=== PATIENT | male | born 1945 | race Caucasian/White ===

== ENCOUNTER → 2016-12-17 | Day surgery (SDC) | payer OTHER ==
[2016-12-12 12:38] VITALS: Ht 177.8 cm; Wt 73.6 kg
[~2016-12-17] VITALS: Ht 177.8 cm; Wt 73.6 kg
[~2016-12-17] MED LIST: ACETAMINOPHEN 325 MG TAB PO PRN; ASCA500 PO; ASPCH81X PO; ATOM100C PO; ATOR-24 PO; ATROPINE SULFATE 0.1 MG/ML 5ML SYR IV PRN; ATROPINE SULFATE 1% OP OINT PER APPLICATION CHARGE ONE; BUPIVACAINE HCL 0.75% 10 ML AMP/VIAL ONE; CEFAZOLIN SOD 1 GM VIAL ONE; CHOL1000 PO; DEXAMETHASONE SOD INJ 4 MG/ML VIAL ONE; DICL50TA3 PO; EpHEDrine SULFATE INJ 50 MG/ML AMP IV PRN; EpINEphrine INJ 1MG/ML AMP 1 MG/ML AMP ONE; FENTANYL CITRATE INJ 50 MCG/1 ML 2 ML VIAL ONE; FOLI1TAB7 PO; HYALURONIDASE HUMAN 150 UNIT/ML INJ ONE; LACTATED RINGER'S 1000ML 500 ML IV SCH; LIDOCAINE HCL 2% 2 ML VIAL (20MG/ML) ONE; LIDOCAINE MPF 4% INJ INJ ONE; LORA10TA44 PO; MAGN400T6 PO; MIDAZOLAM HCL 1 MG/ML 2ML VIAL ONE; NEOMYCIN/POLYMYX/DEXAMETH OP OINT PER APP CHARGE ONE; ONDANSETRON INJ 2 MG/ML 2 ML VIAL ONE; PHENYLEPHRINE HCL 10% OP SOLN PER DROP CHARGE ONE; PROPARACAINE 0.5% OP SOLN PER DROP CHARGE OPR SCH; PROPOFOL IV EMULSION 10 MG/ML 20 ML VIAL IV ONE; TIMOLOL MALEATE 0.5% OP SOLN PER DROP CHARGE ONE
[2016-12-17] MEDS: PHENYLEPHRINE HCL 2.5% OP SOLN PER DROP CHARGE OPR SCH ×2 (08:14→08:19)
[2016-12-17] MEDS: TROPICAMIDE 1% OP SOLN PER DROP CHARGE OPR SCH ×2 (08:15→08:20)
--- NOTE | 2016-12-17 09:51 | History & Physical Bridge - SC ---
H&P Re-Evaluation Bridge Note: pt has retinal detachmen in right eye and is having vitrectomy right eye. I have examined the patient, reviewed the History & Physical and in the interval since the performance of the History & Physical I have noted the following changes of clinical significance: No changes noted
--- NOTE | 2016-12-17 11:22 | [facility] Operative Report ---
Operative Report PREOPERATIVE DIAGNOSIS: Retinal detachment, macula-off right eye. ICD 10: H33.011 POSTOPERATIVE DIAGNOSIS: same. PROCEDURE: 1. Pars plana vitrectomy, 23 gauge. 2. Fluid-air exchange. 3. Endolaser. 4 Air-gas exchange with SF6 20%. All to the right eye. CPT CODE: 81821 SURGEON: Jose Ogden D.O. COMPLICATIONS: None. ESTIMATED BLOOD LOSS: None. SPECIMENS: None. ANESTHESIA: Retrobulbar block and MAC. INDICATIONS FOR PROCEDURE: Surgery is indicated to decrease risk of vision loss and potentially improve vision. CONSENT: The risks, benefits and alternatives were discussed with the patient including but not limited to decreased visual acuity, failure to achieve desired results, loss of the eye, infection, pain, glaucoma, lens changes, retinal tears, retinal detachment, the need for more procedures, drooping of the eyelid, blindness, and double vision. The patient is aware of risks and consents to the surgery. Consent is signed and on the chart. OPERATION AND FINDINGS: The patient was brought to the operating room where the patient was identified by name, date, and medical record number. The surgical site was confirmed with the informed written consent. The patient was sedated by the anesthesiology team after which a 50:50 mixture of 4% lidocaine and 0.75% bupivacaine with hyaluronidase was administered in a standard retrobulbar fashion. A total of 4 ml was administered without difficulty. The patient was then prepped and draped in the usual sterile manner for retinal surgery. A wire lid speculum was placed and an Max 23-gauge trocar cannula system was employed. The inferior temporal trocar cannula was first placed in an angled fashion 3.75mm posterior to the surgical limbus and the infusion cannula was inserted into this cannula after which the intravitreal position was verified prior to turning the infusion on. Two more trocar cannulas were then inserted in an angled fashion, one in the superior temporal, and one in the superior nasal quadrant both 3.75mm posterior to the surgical limbus. A light pipe and vitrector were then introduced into the eye and the BIOM wide angle viewing system was brought into place. Posterior inspection revealed a retinal detachment from 4-11:30 o'clock with the inciting retinal break at 11 o'clock. Standard core vitrectomy was performed and the vitreous was insured to be totally detached from the posterior pole with the aid of the vitrector. The vitreous base was shaved for 360 degrees. At this point scleral depression was performed for 360 degrees and no other retinal tears were noted. Fluid air exchange was performed and the subretinal fluid was drained through a small retinotomy site that was fashioned along the superior arcades. Endolaser was then used to place laser around the inciting retinal break and the drainage retinotomy. Next, an air gas exchange was performed with SF620% for a complete fill of the eye. The trocar cannulas were then removed and found to be air tight. The intraocular pressure was found to be within normal limits by palpation and subconjunctival injections of Kefzol and dexamethasone were administered inferiorly and superiorly. The wire lid speculum was removed. Maxitrol, atropine and timolol were applied to the surface of the eye. A light patch and shield were taped over the surface of the eye and the patient left the Operating Room in stable condition having tolerated the procedure well. DISPOSITION: A gas bracelet was placed on the patient's wrist and gas precautions reviewed as well as the positioning instructions. The patient has an appointment the following morning in the Ophthalmology Clinic. The patient is to call immediately if there are any problems overnight. I attest to the content of the Intraoperative Record and any orders documented therein. Any exceptions are noted below.
--- NOTE | 2016-12-17 11:23 | Discharge Instructions-SurgCtr ---
Discharge Instructions Visit Reason for Visit: Right Eye Retinal Detachment Discharge Discharge Diagnosis / Problem: same Discharge Goals Goal(s): Improve function Activity Recommendations Activity Limitations: per Instructions/Follow-up section Anesthesia . Post Anesthesia Instructions: If you have had General Anesthesia or IV Sedation: * Do not drive today. * Resume driving when surgeon permits. * Do not make important decisions or sign legal documents today. * Call surgeon for: 1. Temperature elevations greater than 101 degrees F. 2. Uncontrollable pain. 3. Excessive bleeding. 4. Persistent nausea and vomiting. 5. Medication intolerance (nausea, vomiting or rash). * For nausea and vomiting use only clear liquids such as: tea, soda, bouillon until nausea subsides, then gradually increase diet as tolerated. * If you have any concerns or questions, call your surgeon's office. If physician is unavailable and it is an emergency, call 911 or go to the nearest emergency room. . Instructions / Follow-Up Instructions / Follow-Up * May take Tylenol if needed for discomfort. * Do NOT lay flat on back and position head as follows: face forward or chin down during daytime, sleep on left side * Do NOT remove green bracelet until instructed to do so by your surgeon and follow these precautions: * No air travel * No travel above 2500 feet * No nitrous oxide (N2O). * Do NOT remove eye shield. * NO straining, heavy lifting (>15 pounds) or bending below waist. * Avoid getting water or soap directly into operative eye. * Do NOT rub eye. If you experience increasing eye pain not relieved by medication, please contact us immediately at [phone]. If you are unable to reach someone at the above number, call [phone] and ask to speak with the EYE DOCTOR RENTAL SALES ASSOCIATE. Inform them that you are a Dr. Ogden patient who had recent surgery. Diet Recommendations Home Diet: resume previous diet Procedures Procedures Performed: Right Eye 23 Gauge Vitrectomy, Endo Laser, SF6 Gas Insertion Pending Studies Studies pending at discharge: no Medical Emergencies . Who to Call and When: Medical Emergencies: If at any time you feel your situation is an emergency, please call 911 immediately. . Non-Emergent Contact Non-Emergency issues call your: Supervisor Looping . . "Provider Documentation" section prepared by Jose Ogden.
[2016-12-17 11:36] VITALS: TEMP 36.4
--- NOTE | 2016-12-17 11:38 | Anesthesia Progress Nt - [facility] ---
Anesthesia Post Op Note Date & Time Dec 17, 2016 at 11:37 Vital Signs Pain Intensity: 0 Vital Signs Past 12 Hours Date Time Temp Pulse Resp B/P Pulse Ox O2 Delivery O2 Flow Rate FiO2 12/17/16 08:08 36.8 61 16 123/76 98 Room Air Notes Mental Status: alert / awake / arousable, participated in evaluation Pt Amnestic to Procedure: Yes Nausea / Vomiting: adequately controlled Pain: adequately controlled Airway Patency, RR, SpO2: stable & adequate BP & HR: stable & adequate Hydration State: stable & adequate Anesthetic Complications: no major complications apparent
[2016-12-17 12:45] VITALS: BP 127/70; PULSE 46; O2SAT 100
== END | disposition home or self-care (01) ==
LOC: X.SURG 07:51
PROVIDERS: ATTEND Ophthalmology
DX: H33.011 Retinal detachment with single break, right eye (principal)

== ENCOUNTER → 2017-11-08 | Outpatient (CLI) | payer OTHER ==
[~2017-11-08] VITALS: Ht 177.8 cm; Wt 81.3 kg
[~2017-11-08] MED LIST changes: -ACETAMINOPHEN 325 MG TAB PO PRN; -ATROPINE SULFATE 0.1 MG/ML 5ML SYR IV PRN; -ATROPINE SULFATE 1% OP OINT PER APPLICATION CHARGE ONE; -BUPIVACAINE HCL 0.75% 10 ML AMP/VIAL ONE; -CEFAZOLIN SOD 1 GM VIAL ONE; -DEXAMETHASONE SOD INJ 4 MG/ML VIAL ONE; -EpHEDrine SULFATE INJ 50 MG/ML AMP IV PRN; -EpINEphrine INJ 1MG/ML AMP 1 MG/ML AMP ONE; -FENTANYL CITRATE INJ 50 MCG/1 ML 2 ML VIAL ONE; -FOLI1TAB7 PO; +FOLI1TAB8 PO; -HYALURONIDASE HUMAN 150 UNIT/ML INJ ONE; -LACTATED RINGER'S 1000ML 500 ML IV SCH; -LIDOCAINE HCL 2% 2 ML VIAL (20MG/ML) ONE; -LIDOCAINE MPF 4% INJ INJ ONE; -MIDAZOLAM HCL 1 MG/ML 2ML VIAL ONE; -NEOMYCIN/POLYMYX/DEXAMETH OP OINT PER APP CHARGE ONE; -ONDANSETRON INJ 2 MG/ML 2 ML VIAL ONE; -PHENYLEPHRINE HCL 10% OP SOLN PER DROP CHARGE ONE; -PROPARACAINE 0.5% OP SOLN PER DROP CHARGE OPR SCH; -PROPOFOL IV EMULSION 10 MG/ML 20 ML VIAL IV ONE; -TIMOLOL MALEATE 0.5% OP SOLN PER DROP CHARGE ONE
[2017-11-08 14:45] VITALS: BP 129/77; PULSE 69; Ht 177.8 cm; Wt 81.3 kg
== END | disposition home or self-care (01) ==
LOC: C.NEUR 14:20
PROVIDERS: ATTEND Internal Medicine Pulmonary Disease
DX: G47.33 Obstructive sleep apnea (adult) (pediatric) (principal); F90.9 Attention-deficit hyperactivity disorder, unspecified type; R53.83 Other fatigue

== ENCOUNTER → 2017-11-12 | Outpatient (CLI) | payer OTHER ==
--- NOTE | 2017-11-13 06:03 | PAP/PSG TECHNICIAN REPORT ---
[facility] Desktop Architect Polysomnogram Report Study name: None Report date: 11/13/2017 Study date: 11/12/2017 Referring Physician: DR. DELACRUZ Name: MONTY POON Interpreting Physician: Monty Delacruz M.D. Date of : 1945 Desktop Architect: Marvel Plaza RPSGT. Sex: Male Age: 72 StudyType: PSG Weight: 179 lbs 15 inches Height: 72 years, Height 5' 9" Neck Circum: BMI: 26.43 Medications: ASPIRIN 81 MG, ATORVASTATIN CALCIUM 20 MG, CETIRIZINE HCL 10 MG, CONCERTA 18 MG, DICLOFENAC SODIUM ER 100 MG, METROGEL, MIRTAZAPINE 30 MG, VALTREX Patient History PATIENT WAS DIAGNOSED WITH JANIS MANY YEARS AGO AND USED CPAP FOR A SHORT AMOUNT OF TIME. 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 HE HAS TRIED DENTAL DEVICES IN THE PAST WITH DIFFICULTY TOLERATING THEM. HE IS HERE TODAY FOR AN EVALUATION FOR JANIS. ESS = 4 RM 7 Parameters Monitored NPSG: E1-M2, E2-M1, Fp1-M2, Fp2-M1, F3-M2, F4-M2, F4-M1, C3-M2, C4-M2, C4-M1, O1-M2, O2-M2, O2-M1, T3-M2, T4-M1, P3-M2, P4-M1, CHIN1, CHIN2, HR, EKG, Legs, PFLOW, SNOR, FLOW, CFLOW, Tidal Volume, THOR, ABDO, SpO2, PLTH, CPRESS, ETCO2 Wave, ETCO2, pH Sleep Architecture Sleep Stages Time at Lights Off 10:09:21 PM STAGES Time (min.) TST (%) Time at Lights On 5:32:51 AM Wake 40.5 -- Total Recording Time (TRT) 444.00 min. N1 25.5 6 Total Sleep Period (TSP) 435.0 min. N2 268.0 67 Total Sleep Time (TST) 403.0min. N3 35.5 9 Awake Time 41.0 min. REM 74.0 18 Wake after Sleep Onset 32.0 min. Sleep Efficiency (SE) 91 % Sleep Onset Latency (TIGIST) 8.5 min. Number of Stage 1 Shifts None Awakenings 17 Stage Changes 82 Number of REM periods 4 REM 74.0 18 REM Latency 232.0 min. NREM 329.0 82 Body Position Analysis Supine Right Left Side Prone Vertical Total Sleep Time (min.) 0.0 403.0 0.0 403.00 0.0 0.0 Total Sleep Time (%) 0% 100% 0% 100 0% N/A% Total Sleep Time REM (min.) 0.0 74.0 0.0 None 0.0 0.0 Total Sleep Time NREM (min.) 0.0 329.0 0.0 None 0.0 0.0 Intermittent Wake (min.) 0.0 40.5 0.0 None 0.0 0.0 Total Sleep Period (%) 0% None None None None None Arousals Myoclonus (PLM) * Events Count Index Events Count Index Spontaneous 42 6 Events Awake (PLMW) 48 71.1 Respiratory 0 0.0 Events Asleep w/ Arousal (PLMA) 7 1.0 PLM 7 1 Events Asleep w/o Arousal (PLMS) 41 6.1 Snoring 4 1 Total Asleep 48 7.1 Total 53 8 Total 96 13 Respiratory Analysis * CA OA MA CH H RERA Total Count 0 0 0 0 4 0 4 Index 0.0 0.0 0.0 0 0.6 0 0.6 Mean Duration 0.0 0.0 0.0 0.00 17.1 0.0 17.1 Longest Duration 0.0 0.0 0.0 0.00 0.0 0.0 21.4 Respiratory Event Summary Total Supine ~Supine Right Left Prone REM NREM Apneas Count 0 N/A 0 0 N/A N/A 0 0 Index 0.0 N/A 0 0.0 N/A N/A 0 0 Hypopneas (4% Desat) Count 4 N/A 4 4 N/A N/A 1 3 Index 0.6 N/A 1 0.6 N/A N/A 0.8 0.5 Apneas & All Hypopneas Count 4 N/A 4 4 N/A N/A 1 3 Index 0.6 N/A 1 1 N/A N/A 0.8 0.5 Respiratory Events (Animal Health Technician+All Hyp+RERA) Count 4 N/A 4 4 N/A N/A 1 3 Index 0.6 N/A 1 0.6 N/A N/A 0.8 0.5 Respiratory Related Arousal Count 0 N/A 0 0 N/A N/A 0 0 Index 0.0 N/A 0 0 N/A N/A 0 0 Snoring Analysis Supine Right Left Prone REM NREM Total Snore duration 7.8 min Snores count N/A 331 N/A N/A 131 200 331 Snore mean duration 1.4 Sec Snores index N/A 49 N/A N/A 106.2 36.5 49.3 TST with snoring (%) 1.9% Desaturation Event Summary: Minimum %SpO2 Event Count Mean/Min/Max Duration(sec.) Desaturation Index % Time In Bed > 90 5 36.8 / 21.0 / 60.1 0.7 100.0 86 - 90 1 8.8 / 8.8 / 8.8 411.4 0.0 81 - 85 0 N/A 0.0 0.0 76 - 80 0 N/A 0.0 0.0 71 - 75 0 N/A 0.0 0.0 66 - 70 0 N/A 0.0 0.0 61 - 65 0 N/A 0.0 0.0 56 - 60 0 N/A 0.0 0.0 51 - 55 0 N/A 0.0 0.0 < 50 0 N/A 0.0 0.0 Total REM NREM Awake <50% 0.0 min. 0.0 min. 0.0 min. 0.0 min. 51 - 60% 0.0 min. 0.0 min. 0.0 min. 0.0 min. 61 - 70% 0.0 min. 0.0 min. 0.0 min. 0.0 min. 71 - 80% 0.0 min. 0.0 min. 0.0 min. 0.0 min. 81 - 90% 0.1 min. 0.0 min. 0.0 min. 0.1 min. 91 - 100% 436.1 min. 73.8 min. 328.5 min. 33.9 min. Average 94 95 94 94 Minimum SpO2 88 91 91 88 Desaturation Event Index 0.8 0.8 0.5 3.0 # Desat. Events below 89% 1 N/A N/A 1 Time(%) with Saturation below 89% 0.0 0.0 0.0 0.0 Time(min.) with Saturation below 89% 0.1 0.0 0.0 0.1 Time (mins) REM (mins) NREM (mins) % of TST SpO2 Below 90% N/A N/A NN/A 0.0 SpO2 Below 88% 0 0 0 0 Heart Rate Analysis Min (bpm) Max (bpm) Average (bpm) Awake 32 73 53 NREM 44 62 49 REM 43 64 49 Overall 43 64 49 Supplemental O2 Values Minimum O2 level: None Value Start Time End Time Desktop Architect Comments Mr. Poon slept in the right position. PAC's noted. Leg movements noted. No bruxism noted. Snoring was noted and scored as a 2 on a scale of 1 through 5. (0=no snoring, 5=snoring loud enough to be heard through a closed door or down the nagel way) Mr. Poon awoke to use the restroom 2 times during the night. Mr. Poon stated I slept as well as I do when I am in my own bed. The final report will be interpreted and signed by a sleep physician. The completed physician report will then be placed in the patient medical record. Therapy (cm H2O) 0 TIB (min.) 443.5 TST (min.) 403.0 Sleep Onset (min.) 8.5 REM Onset From Sleep (min.) 232.0 Sleep Efficiency % 91 Wakefulness (%) 9 Wakefulness (min.) 41.0 NREM 1 (%) 6 NREM 1 (min.) 25.5 NREM 2 (%) 67 NREM 2 (min.) 268.0 NREM 3 (%) 9 NREM 3 (min.) 35.5 REM (%) 18 REM (min.) 74.0 # Arousals 53 Arousal Index 8 # Snore 331 Snore Index 49.3 AHI 0.6 AHI Supine N/A AHI Non-Supine 1 NREM AHI 0.5 REM AHI 0.8 RDI 0.6 # Obstructive Apnea 0 # Central Apnea 0 # Mixed Apnea 0 # Hypopneas 4 RERAs 0 Total Respiratory Events 4 Time Below SpO2 89% (min.) 0.0 Mean NREM SpO2 (%) 94 Mean REM SpO2 (%) 95 Mean Sleep SpO2 (%) 94 Min NREM SpO2 (%) 91 Min REM SpO2 (%) 91 Position Supine (min.) 0.0 Position Non-supine (min.) 403.0 LM Index Sleep 7.1 LM Index NREM 5.3 LM Index REM 15.4 Mean Heart Rate (bpm) 49 Min Heart Rate (bpm) 43
--- NOTE | 2017-11-13 14:40 | POLYSOMNOGRAPH REPORT ---
CLINICAL DATA: A 72-year-old male with BMI of 26.4 referred for a baseline sleep study. He had sleep apnea diagnosed years ago and used a CPAP device for a period time and then tried oral appliances with difficulty tolerating them. He is sent back for a repeat sleep study to determine if he has clinically significant sleep apnea. His [place] sleepiness score is 4/24. SLEEP ARCHITECTURE: Total sleep period was 435 minutes. Total sleep time was 403 minutes divided between 329 minutes of non-REM sleep and 74 minutes of REM sleep. Sleep latency was 8.5 minutes. REM latency was 232 minutes. Sleep efficiency was 91%. Wake after sleep onset was 32 minutes. Sleep consisted of stage N1 6%, stage N2 67%, stage N3 9%, and REM 18%. AROUSAL DATA: Fifty three arousals were recorded for an index of 8 per hour. Forty three were spontaneous. PERIODIC LIMB MOVEMENT DATA: No significant PLMD was seen. There were 48 limb movements noted during sleep for an index of 7.1 per hour with arousal index of 1. RESPIRATORY DATA: No significant sleep apnea was seen. The AHI was 0.6. There were 4 hypopneic episodes with a mean duration of 17 seconds. OXIMETRY DATA: No hypoxemia was seen. Oxygen bela was 91%. Mean saturation was 94%. ECHOCARDIOGRAM: Heart rates ranged from 44-64 beats per minute. PACs were noted. SUPERVISOR MAJOR APPLIANCE ASSEMBLY'S COMMENTS: The patient slept in the right position. Snoring was mild, rated 2 on a scale of 1-5. IMPRESSION: No evidence of clinically significant sleep apnea/hypopnea, nocturnal hypoxemia or abnormal limb movements during sleep. RECOMMENDATIONS: The patient should continue to practice good sleep hygiene. There was nothing to suggest that CPAP or oral appliances would be indicated. [facility]
== END | disposition home or self-care (01) ==
LOC: C.NEUR 20:00
PROVIDERS: ATTEND Internal Medicine Pulmonary Disease
DX: F90.9 Attention-deficit hyperactivity disorder, unspecified type (principal); R53.83 Other fatigue; G47.33 Obstructive sleep apnea (adult) (pediatric)

== ENCOUNTER → 2017-12-19 | Outpatient (CLI) | payer OTHER ==
--- NOTE | 2017-12-19 16:43 | DIAGNOSTIC IMAGING REPORT ---
L KNEE 4 OR MORE CLINICAL HISTORY: LEFT KNEE PAIN pain COMPARISON: 07/13/2015 DISCUSSION: Moderate degenerative change of the medial and to a lesser extent lateral joint compartments bilaterally. Underlying chondrocalcinosis. Mild degenerative change patellofemoral joint. There is no evidence for soft tissue swelling. IMPRESSION: Moderate degenerative changes in medial and to lesser extent lateral joint compartments bilaterally. Chondrocalcinosis. No significant change from the prior study. The above report was generated using voice recognition software. It may contain grammatical, syntax or spelling errors. Electronically signed by: Dariel Casey M.D. 12/19/2017 4:42 PM Dictated Date/Time: 12/19/2017 4:40 PM
== END | disposition home or self-care (01) ==
LOC: C.RDSM 18:59
PROVIDERS: ATTEND Physician Assistant
DX: M17.10 Unilateral primary osteoarthritis, unspecified knee (principal)

== ENCOUNTER → 2018-01-22 | Outpatient (CLI) | payer OTHER | END | disposition home or self-care (01) | LOC: C.PATHSPEC 16:58 | PROVIDERS: ATTEND Physician Assistant | DX: C44.42 Squamous cell carcinoma of skin of scalp and neck (principal) ==